=== PATIENT | male | born 1985 | race Two or more races ===

== ENCOUNTER 2019-10-07 11:04 | Emergency (ER) | payer SELFPAY ==
[~2019-10-07] VITALS: Ht 172.7 cm; Wt 83.9 kg
[2019-10-07 11:14] VITALS: BP 119/56
[2019-10-07] MEDS ORDERED: POTASSIUM EFFERVESENT TAB 25 MEQ PO ONE (12:45)
== END 2019-10-07 12:55 | disposition home or self-care (01) ==
LOC: ER 11:04
DX: T16.2XXA Foreign body in left ear, initial encounter (principal); X58.XXXA Exposure to other specified factors, initial encounter; Y93.89 Activity, other specified; Y99.8 Other external cause status; Y92.89 Other specified places as the place of occurrence of the external cause
CPT/HCPCS: 69200